=== PATIENT | male | born 1970 | race Caucasian/White ===

== ENCOUNTER → 2019-09-17 | Outpatient (CLI) | payer SELFPAY ==
[2015-09-23 11:16] VITALS: BP 149/104
--- NOTE | 2019-09-17 12:03 | RAD ---
EXAM: Bilateral lower extremity venous Doppler. HISTORY: Bilateral lower extremity pain/swelling. COMPARISON: US venous ultrasound of 09/23/2015 FINDINGS: Grayscale and Doppler analysis of the both lower extremity deep venous systems was performed with graded compression and augmentation. The common femoral, greater saphenous, superficial femoral, popliteal and calf veins were assessed. Nonocclusive filling defects are present in the right mid femoral vein and in the left popliteal vein, compatible with thrombus. IMPRESSION: 1. Bilateral nonocclusive DVTs in the mid right femoral vein and in the left popliteal vein. Findings discussed with JORGE SCOTT at 09/17/2019 11:58 AM. Electronically signed by: Leodan Goldman MD (09/17/2019 12:00 PM) [id number]
== END ==
LOC: US 10:15
PROVIDERS: ATTEND Family Medicine
DX: I82.411 Acute embolism and thrombosis of right femoral vein (principal); I82.431 Acute embolism and thrombosis of right popliteal vein; M79.662 Pain in left lower leg; D68.2 Hereditary deficiency of other clotting factors
CPT/HCPCS: 93970